=== PATIENT | female | born 1995 | race Caucasian/White ===

== ENCOUNTER 2017-10-14 19:00 | Emergency (ER) | payer OTHER ==
[~2017-10-14] VITALS: Ht 157.5 cm; Wt 49.9 kg
[2017-10-14 19:17] VITALS: BP_SYST 140
[2017-10-14] MEDS ORDERED: DIPHENHYDRAMINE HCL 25 MG CAPSULE PO ONE (20:00)
[2017-10-14] MEDS ORDERED: METOCLOPRAMIDE HCL 10 MG TABLET PO ONE (20:00)
[2017-10-14] MEDS ORDERED: KETOROLAC TROMETHAMINE 60 MG/2 ML VIAL IM ONE (20:00)
[2017-10-14 20:42] VITALS: BP_SYST 132
== END 2017-10-14 20:41 | disposition home or self-care (01) ==
LOC: SED 19:00
DX: S39.012A Strain of muscle, fascia and tendon of lower back, initial encounter (principal); R51 Headache; R03.0 Elevated blood-pressure reading, without diagnosis of hypertension; V89.2XXA Person injured in unspecified motor-vehicle accident, traffic, initial encounter; Y93.89 Activity, other specified; Y92.410 Unspecified street and highway as the place of occurrence of the external cause; Y99.8 Other external cause status
CPT/HCPCS: 81025; 96372; 99283; J1885; J8597; Q0163

== ENCOUNTER 2018-09-16 09:55 | Outpatient (CLI) | payer OTHER ==
[2018-09-16 10:39] LABS: BASOPHILS % (AUTO) 0.5 % (0.0-2.0); EOSINOPHILS # (AUTO) 0.1 K/uL (0.0-0.4); HEMATOCRIT 36.8 % (36-48); HEMOGLOBIN 12.6 g/dL (12.0-16.0); LYMPHOCYTES # (AUTO) 1.8 K/uL (1.0-5.5); LYMPHOCYTES % (AUTO) 23.5 % (20.5-51.5); MEAN CORPUSCULAR HEMOGLOBIN 30 pg (27-31); MEAN CORPUSCULAR HGB CONC 34 % (32-36); MEAN CORPUSCULAR VOLUME 89 fL (79.0-98.0); MONOCYTES # (AUTO) 0.5 K/uL (0.0-1.0); MONOCYTES % (AUTO) 6.7 % (1.7-9.3); NEUTROPHILS # (AUTO) 5.3 K/uL (1.8-7.7); NEUTROPHILS % (AUTO) 68.3 % (40.0-70.0); PLATELET COUNT (AUTO) 257 K/uL (130-430); RED BLOOD CELL COUNT(AUTO) 4.12 MIL/uL (4.2-6.2); RED CELL DISTRIBUTION WIDTH 13.6 % (9.0-15.0); WHITE BLOOD COUNT (AUTO) 7.8 K/uL (4.8-10.8)
[2018-09-17 08:08] LABS: HEPATITIS B SURFACE AG Negative (Negative); RUBELLA AB, IgG 2.77 index (Immune >0.99)
[2018-09-18 18:06] LABS: RUBELLA AB, IgM <20.0 AU/mL (0.0-19.9)
== END 2018-09-16 20:18 | disposition home or self-care (01) ==
LOC: SLB 09:55
PROVIDERS: ATTEND Specialist
DX: Z34.00 Encounter for supervision of normal first pregnancy, unspecified trimester (principal)
CPT/HCPCS: 36415; 85025; 86592; 86762; 86886; 86900; 86901; 87340

== ENCOUNTER 2018-12-28 09:19 | Outpatient (CLI) | payer OTHER ==
[2018-12-28 10:15] LABS: BASOPHILS # (AUTO) 0.1 K/uL (0.0-0.2); BASOPHILS % (AUTO) 0.6 % (0.0-2.0); EOSINOPHILS # (AUTO) 0.1 K/uL (0.0-0.4); EOSINOPHILS % (AUTO) 1.1 % (0.0-4.0); HEMOGLOBIN 11.7 g/dL (12.0-16.0); LYMPHOCYTES # (AUTO) 1.9 K/uL (1.0-5.5); LYMPHOCYTES % (AUTO) 20.3 % (20.5-51.5); MEAN CORPUSCULAR HEMOGLOBIN 31 pg (27-31); MEAN CORPUSCULAR HGB CONC 34 % (32-36); MEAN CORPUSCULAR VOLUME 91 fL (79.0-98.0); MONOCYTES # (AUTO) 0.8 K/uL (0.0-1.0); MONOCYTES % (AUTO) 8.1 % (1.7-9.3); NEUTROPHILS # (AUTO) 6.6 K/uL (1.8-7.7); NEUTROPHILS % (AUTO) 69.9 % (40.0-70.0); PLATELET COUNT (AUTO) 235 K/uL (130-430); RED BLOOD CELL COUNT(AUTO) 3.72 MIL/uL (4.2-6.2); RED CELL DISTRIBUTION WIDTH 13.7 % (9.0-15.0); WHITE BLOOD COUNT (AUTO) 9.5 K/uL (4.8-10.8)
== END 2018-12-28 20:59 | disposition home or self-care (01) ==
LOC: SLB 09:19
PROVIDERS: ATTEND Specialist
DX: Z34.80 Encounter for supervision of other normal pregnancy, unspecified trimester (principal); Z3A.00 Weeks of gestation of pregnancy not specified
CPT/HCPCS: 36415; 82947-TC; 85025; 86592

== ENCOUNTER 2019-03-04 20:56 | Observation (INO) | payer OTHER | END 2019-03-04 21:50 | disposition home or self-care (01) | LOC: SPU 20:56 | PROVIDERS: ADMIT Specialist; ATTEND Specialist | DX: Z04.1 Encounter for examination and observation following transport accident (principal); O26.893 Other specified pregnancy related conditions, third trimester; R10.32 Left lower quadrant pain; Z3A.38 38 weeks gestation of pregnancy | CPT/HCPCS: 81002; G0378 ==

== ENCOUNTER 2019-03-16 15:32 | Inpatient (IN) | payer OTHER ==
[~2019-03-16] VITALS: Ht 162.6 cm; Wt 80.3 kg
[2019-03-16] MEDS ORDERED: OXYTOCIN/0.9 % SODIUM CHLORIDE 1,000 ML IV SCH (21:16)
[2019-03-16 21:24] VITALS: BP_SYST 138
[2019-03-16] MEDS ORDERED: TERBUTALINE SULFATE 1 MG/ML VIAL SUBCUT ONE (21:30)
[2019-03-16] MEDS ORDERED: DINOPROSTONE 10 MG SUPP VG ONE (21:30)
[2019-03-16] MEDS ORDERED: NALBUPHINE HCL 10 MG/ML AMP IVP PRN (21:30)
[2019-03-16 21:42] LABS: BASOPHILS # (AUTO) 0.1 K/uL (0.0-0.2); BASOPHILS % (AUTO) 0.5 % (0.0-2.0); EOSINOPHILS # (AUTO) 0.1 K/uL (0.0-0.4); EOSINOPHILS % (AUTO) 1.1 % (0.0-4.0); HEMATOCRIT 34.3 % (36-48); HEMOGLOBIN 11.9 g/dL (12.0-16.0); LYMPHOCYTES # (AUTO) 2.2 K/uL (1.0-5.5); LYMPHOCYTES % (AUTO) 22.1 % (20.5-51.5); MEAN CORPUSCULAR HEMOGLOBIN 32 pg (27-31); MEAN CORPUSCULAR HGB CONC 35 % (32-36); MEAN CORPUSCULAR VOLUME 91 fL (79.0-98.0); MONOCYTES # (AUTO) 0.9 K/uL (0.0-1.0); MONOCYTES % (AUTO) 8.6 % (1.7-9.3); NEUTROPHILS # (AUTO) 6.8 K/uL (1.8-7.7); NEUTROPHILS % (AUTO) 67.7 % (40.0-70.0); PLATELET COUNT (AUTO) 199 K/uL (130-430); RED BLOOD CELL COUNT(AUTO) 3.78 MIL/uL (4.2-6.2); RED CELL DISTRIBUTION WIDTH 15.3 % (9.0-15.0)
[2019-03-17] MEDS ORDERED: fentaNYL CITRATE/PF 100 MCG/2 ML AMP ONE (12:04)
[2019-03-17] MEDS ORDERED: ROPIVACAINE HCL/PF 0.2% 200 ML ONE (12:04)
[2019-03-17] MEDS ORDERED: LR 500 ML IV ONE (12:24)
[2019-03-17] MEDS ORDERED: ePHEDrine sulfate 50 MG/ML VIAL IVP PRN (12:30)
[2019-03-17] MEDS ORDERED: FENT2mCg/mL-ROPIVA0.2%/NS EPID 200 ML EP SCH (12:30)
[2019-03-17] MEDS ORDERED: fentaNYL CITRATE/PF 100 MCG/2 ML AMP EP ONE (12:30)
[2019-03-17] MEDS ORDERED: ePHEDrine sulfate 50 MG/ML VIAL ONE (13:15)
[2019-03-17] MEDS: LR 1,000 ML IV SCH (23:45)
[2019-03-18] MEDS ORDERED: ROPIVACAINE HCL/PF 0.2% 200 ML ONE (00:13)
[2019-03-18] MEDS ORDERED: fentaNYL CITRATE/PF 100 MCG/2 ML AMP ONE ×2 (02:16→05:08)
[2019-03-18] MEDS ORDERED: AMPICILLIN SODIUM 2 GM in NS 100 ML IV ONE (03:00)
[2019-03-18] MEDS ORDERED: AMPICILLIN SODIUM 2 GM VIAL ONE (03:13)
[2019-03-18] MEDS ORDERED: AMPICILLIN SODIUM 1 GM VIAL ONE (06:50)
[2019-03-18] MEDS ORDERED: AMPICILLIN SODIUM 1 GM in NS 50 ML IV SCH (07:00)
[2019-03-18] MEDS: LR 1,000 ML IV SCH (08:09)
[2019-03-18] MEDS ORDERED: METHYLERGONOVINE MALEATE 0.2 MG/ML AMP ONE (10:25)
[2019-03-18] MEDS ORDERED: OXYTOCIN/0.9 % SODIUM CHLORIDE 1,000 ML IV ONE (10:45)
[2019-03-18] MEDS ORDERED: DERMOPLAST SPRAY TP PRN (10:45)
[2019-03-18] MEDS: IBUPROFEN 600 MG TABLET PO SCH ×3 (11:57→23:52)
[2019-03-18] MEDS: WITCH HAZEL LEAF 1 MED.PAD MED.PAD TP PRN ×2 (11:59→23:53)
[2019-03-18] MEDS ORDERED: METHYLERGONOVINE MALEATE 0.2 MG/ML AMP IM ONE (12:15)
[2019-03-18] MEDS ORDERED: HYDROCORTISONE 1%, 28.35 GM TOPICAL CREAM TP ONE (15:01)
[2019-03-18] MEDS ORDERED: ROPIVACAINE 40 MG/20 ML AMP EP ONE (15:01)
[2019-03-18] MEDS: DOCUSATE SODIUM 100 MG CAPSULE PO PRN (23:52)
[2019-03-19 07:10] LABS: BASOPHILS # (AUTO) 0.1 K/uL (0.0-0.2); BASOPHILS % (AUTO) 0.5 % (0.0-2.0); EOSINOPHILS # (AUTO) 0.2 K/uL (0.0-0.4); EOSINOPHILS % (AUTO) 1.2 % (0.0-4.0); HEMATOCRIT 26.4 % (36-48); HEMOGLOBIN 9.1 g/dL (12.0-16.0); LYMPHOCYTES # (AUTO) 2.9 K/uL (1.0-5.5); LYMPHOCYTES % (AUTO) 18.5 % (20.5-51.5); MEAN CORPUSCULAR HEMOGLOBIN 32 pg (27-31); MEAN CORPUSCULAR HGB CONC 35 % (32-36); MEAN CORPUSCULAR VOLUME 91 fL (79.0-98.0); MONOCYTES # (AUTO) 1.7 K/uL (0.0-1.0); MONOCYTES % (AUTO) 10.9 % (1.7-9.3); NEUTROPHILS # (AUTO) 10.6 K/uL (1.8-7.7); NEUTROPHILS % (AUTO) 68.9 % (40.0-70.0); PLATELET COUNT (AUTO) 139 K/uL (130-430); RED BLOOD CELL COUNT(AUTO) 2.89 MIL/uL (4.2-6.2); RED CELL DISTRIBUTION WIDTH 15.1 % (9.0-15.0); WHITE BLOOD COUNT (AUTO) 15.4 K/uL (4.8-10.8)
[2019-03-19] MEDS: IBUPROFEN 600 MG TABLET PO SCH ×4 (07:10→17:02)
[2019-03-19] MEDS: DOCUSATE SODIUM 100 MG CAPSULE PO PRN (17:02)
== END 2019-03-19 17:15 | disposition home or self-care (01) | DRG 807 ==
LOC: SPU 20:52
PROVIDERS: ADMIT Specialist; ATTEND Specialist
PROC: 10D07Z6 Extraction of Products of Conception, Vacuum, Via Natural or Artificial Opening (ICD-10-PCS; principal; 2019-03-18)
PROC: 0HQ9XZZ Repair Perineum Skin, External Approach (ICD-10-PCS; 2019-03-18)
PROC: 3E0P7VZ Introduction of Hormone into Female Reproductive, Via Natural or Artificial Opening (ICD-10-PCS; 2019-03-18)
PROC: 3E0R3BZ Introduction of Anesthetic Agent into Spinal Canal, Percutaneous Approach (ICD-10-PCS; 2019-03-18)
PROC: 00HU33Z Insertion of Infusion Device into Spinal Canal, Percutaneous Approach (ICD-10-PCS; 2019-03-18)
DX: O70.0 First degree perineal laceration during delivery (principal); Z37.0 Single live birth; Z3A.39 39 weeks gestation of pregnancy
CPT/HCPCS: 36415; 81002-TC; 85025; 86592; 86886; 86900; 86901; J0290; J2210; J2590; J2795; J3010; J7120

== ENCOUNTER 2019-08-04 07:18 | Day surgery (SDC) | payer OTHER ==
[2019-08-02 10:27] LABS: BASOPHILS % (AUTO) 0.5 % (0.0-2.0); EOSINOPHILS # (AUTO) 0.1 K/uL (0.0-0.4); EOSINOPHILS % (AUTO) 0.8 % (0.0-4.0); HEMATOCRIT 40.7 % (36-48); HEMOGLOBIN 13.6 g/dL (12.0-16.0); LYMPHOCYTES # (AUTO) 1.7 K/uL (1.0-5.5); LYMPHOCYTES % (AUTO) 18.1 % (20.5-51.5); MEAN CORPUSCULAR HEMOGLOBIN 29 pg (27-31); MEAN CORPUSCULAR HGB CONC 33 % (32-36); MEAN CORPUSCULAR VOLUME 87 fL (79.0-98.0); MONOCYTES # (AUTO) 1.2 K/uL (0.0-1.0); MONOCYTES % (AUTO) 12.3 % (1.7-9.3); NEUTROPHILS # (AUTO) 6.5 K/uL (1.8-7.7); NEUTROPHILS % (AUTO) 68.3 % (40.0-70.0); PLATELET COUNT (AUTO) 239 K/uL (130-430); RED CELL DISTRIBUTION WIDTH 14.3 % (9.0-15.0); WHITE BLOOD COUNT (AUTO) 9.5 K/uL (4.8-10.8)
[2019-08-02 11:21] LABS: BILIRUBIN,URINE NEGATIVE (NEGATIVE); BLOOD, URINE 1+ (NEGATIVE); CLARITY/URINE CLEAR (CLEAR); COLOR,URINE YELLOW (YELLOW); GLUCOSE,URINE NEGATIVE (NEGATIVE); HCG,QUAL RESULT NEGATIVE (NEGATIVE); KETONES,URINE NEGATIVE (NEGATIVE); LEUKOCYTE ESTERASE ,URINE NEGATIVE (NEGATIVE); NITRITE, URINE NEGATIVE (NEGATIVE); PROTEIN URINE NEGATIVE (NEGATIVE); UROBILINOGEN,URINE 0.2 (0.2-1.0)
[2019-08-02 11:28] LABS: BACTERIA,URINE FEW /HPF (None Seen); MUCUS,URINE 1+ /LPF (None Seen); RBC,URINE 0-3 /HPF (0-3); WBC,URINE 0-3 /HPF (0-3)
[~2019-08-04] VITALS: Ht 162.6 cm; Wt 68.0 kg
[~2019-08-04 07:18] MED LIST: CEFAZOLIN SOD 2 GM in D5W 50 ML IV ONE
[2019-08-04] MEDS ORDERED: MEPERIDINE HCL/PF 50 MG/ML AMP IM ONE (09:55)
[2019-08-04] MEDS ORDERED: DEXAMETHASONE SOD PHOSPHATE 4 MG/ML VIAL IVP ONE (09:55)
[2019-08-04] MEDS ORDERED: SEVOFLURANE 15 MIN GAS INH ONE (09:55)
[2019-08-04] MEDS ORDERED: NS IRRIG SOLN 1000 ML IR ONE (09:55)
[2019-08-04] MEDS ORDERED: MIDAZOLAM HCL 5 MG/5 ML VIAL IVP ONE (09:55)
[2019-08-04] MEDS ORDERED: NS 1000 ML IV.SOLN IV ONE (09:55)
[2019-08-04] MEDS ORDERED: LR 1,000 ML IV.SOLN IV ONE (09:55)
[2019-08-04] MEDS ORDERED: KETOROLAC TROMETHAMINE 30 MG VIAL IVP ONE (09:55)
[2019-08-04] MEDS ORDERED: PROPOFOL 200MG/ 20ML VIAL (DIPRIVAN) IV ONE (09:55)
[2019-08-04] MEDS ORDERED: fentaNYL CITRATE/PF 100 MCG/2 ML AMP IVP ONE (09:55)
[2019-08-04] MEDS ORDERED: ONDANSETRON HCL 4 MG/2 ML VIAL IVP ONE (09:55)
[2019-08-04] MEDS ORDERED: LR 1,000 ML IV SCH (10:17)
[2019-08-04] MEDS ORDERED: ONDANSETRON HCL 4 MG/2 ML VIAL IVP PRN ×2 (10:30)
[2019-08-04] MEDS ORDERED: MEPERIDINE HCL/PF 25 MG/ML DISP.SYRIN IVP PRN (10:30)
[2019-08-04] MEDS ORDERED: KETOROLAC TROMETHAMINE 30 MG VIAL IVP PRN (10:30)
[2019-08-04] MEDS ORDERED: OXYCODONE/ACETAMINOPHEN 5-325 TABLET PO PRN (10:30)
[2019-08-04] MEDS ORDERED: HYDROmorphone 1 MG INJ. 1 MG/ML AMPUL IVP PRN (10:30)
[2019-08-04] MEDS ORDERED: HYDROcodone/ACETAMIN 5-325 MG TAB (NORCO/ VICODIN) PO PRN (10:30)
[2019-08-04 11:23] VITALS: BP_SYST 112
== END 2019-08-04 12:15 | disposition home or self-care (01) ==
LOC: SMU 07:18 → SDS 07:18
PROVIDERS: ATTEND Specialist
DX: N93.8 Other specified abnormal uterine and vaginal bleeding (principal); N84.0 Polyp of corpus uteri
CPT/HCPCS: 36415; 58558; 81000; 84703; 85025; 88305; J0690; J1100; J1885; J2175; J2250; J2405; J2704; J3010; J7030; J7060; J7120

== ENCOUNTER 2019-09-11 11:27 | Emergency (ER) | payer MEDICAID, OTHER ==
[~2019-09-11] VITALS: Ht 162.6 cm; Wt 68.0 kg
[2019-09-11 11:34] VITALS: BP_SYST 148
[2019-09-11 12:22] VITALS: BP_SYST 146
== END 2019-09-11 12:20 | disposition home or self-care (01) ==
LOC: SED 11:27
DX: J02.9 Acute pharyngitis, unspecified (principal)
CPT/HCPCS: 36415; 86403; 87081; 99283

== ENCOUNTER 2020-12-13 13:14 | Emergency (ER) | payer OTHER, SELFPAY ==
[~2020-12-13] VITALS: Ht 162.6 cm; Wt 74.8 kg
[2020-12-13 13:20] VITALS: BP_SYST 116
[2020-12-13] MEDS ORDERED: ACET325T53 PO (13:43)
[2020-12-13] MEDS ORDERED: DEXT15LI PO (13:43)
[2020-12-13 14:12] VITALS: BP_SYST 116
== END 2020-12-13 14:14 | disposition home or self-care (01) ==
LOC: SED 13:14
DX: J06.9 Acute upper respiratory infection, unspecified (principal); Z79.899 Other long term (current) drug therapy; Z20.822 Contact with and (suspected) exposure to COVID-19
CPT/HCPCS: 86710; 99283; U0003; C9803

== ENCOUNTER 2021-08-23 02:23 | Emergency (ER) | payer OTHER ==
[~2021-08-23] VITALS: Ht 162.6 cm; Wt 69.4 kg
[~2021-08-23 02:23] MED LIST changes: +ACET325T53 PO; -CEFAZOLIN SOD 2 GM in D5W 50 ML IV ONE; +DEXT15LI PO
[2021-08-23 02:28] VITALS: BP_SYST 118
--- NOTE | 2021-08-23 02:28 | NUR ---
Patient triaged and placed in waiting room. VSS and patient appears in no acute distress at this time. Awaiting available bed, and MD notified of need for MSE.
--- NOTE | 2021-08-23 03:06 | NUR ---
Patient ambulatory to bed 3 for evaluation and treatment
[2021-08-23] MEDS ORDERED: PENI500T PO (03:29)
--- NOTE | 2021-08-23 03:59 | NUR ---
Pt DC per MD's order Pt verbalized understandings Patient given written and verbal discharge instructions and verbalizes understanding. ER MD discussed with patient the results and treatment provided. Patient in stable condition. ID arm band removed. Rx given. Patient educated on pain management and to follow up with PMD. for questions provided and answered. Medication side effect fact sheet provided.
== END 2021-08-23 03:58 | disposition home or self-care (01) ==
LOC: SED 02:23
DX: J02.9 Acute pharyngitis, unspecified (principal)
CPT/HCPCS: 87081; 99283